=== PATIENT | female | born 2005 | race Two or more races ===

== ENCOUNTER 2024-09-26 10:55 | Emergency (ER) | payer OTHER ==
[~2024-09-26] VITALS: Ht 167.6 cm; Wt 96.3 kg
[2024-09-26] MEDS ORDERED: PRENTAB77 PO (11:22)
[2024-09-26 15:25] VITALS: BP 138/77; TEMP 96.6; O2SAT 99
== END 2024-09-26 15:29 | disposition home or self-care (01) ==
LOC: M ED 10:55
DX: O26.892 Other specified pregnancy related conditions, second trimester (principal); S62.613A Displaced fracture of proximal phalanx of left middle finger, initial encounter for closed fracture; W01.0XXA Fall on same level from slipping, tripping and stumbling without subsequent striking against object, initial encounter; Y92.009 Unspecified place in unspecified non-institutional (private) residence as the place of occurrence of the external cause; Y93.89 Activity, other specified; Y99.9 Unspecified external cause status; Z3A.00 Weeks of gestation of pregnancy not specified; Z79.899 Other long term (current) drug therapy